=== PATIENT | male | born 1960 | race Two or more races ===

== ENCOUNTER 2016-09-13 18:53 | Emergency (ER) | payer BC ==
[~2016-09-13] VITALS: Ht 182.9 cm; Wt 117.9 kg
[2016-09-13 19:51] LABS: Basophils # (auto) 0 uL; Basophils % (auto) 0.4 % (0.0-2.0); Eosinophils # (auto) 0.1 uL; Eosinophils % (auto) 0.6 % (0.0-7.0); Hematocrit 47.3 % (41.0-53.0); Hemoglobin 16.1 g/dL (13.5-17.5); Lymphocytes # (auto) 2.2 uL; Lymphocytes % (auto) 23.7 % (10.0-50.0); Mean Corpuscular Hemoglobin 29.7 pg (28.0-32.0); Mean Corpuscular Hgb Conc. 33.9 g/dL (32.0-36.0); Mean Corpuscular Volume 87.5 fL (80.0-100.0); Monocytes # (auto) 0.7 uL; Monocytes % (auto) 7.1 % (0.0-12.0); Neutrophils # (auto) 6.4 uL; Neutrophils % (auto) 68.2 % (37.0-80.0); Platelet Count (auto) 348 10^3/uL (140-450); White Blood Cell 9.4 10^3/uL (4.4-10.8)
[2016-09-13 20:12] LABS: Albumin 3.9 g/dL (3.4-5.0); Anion Gap 7 (5-15); Blood Urea Nitrogen 14 mg/dL (7-18); Calcium 9.1 mg/dL (8.5-10.1); Carbon Dioxide 30 mmol/L (21-32); Chloride 104 mmol/L (98-107); Glucose 366 mg/dL (74-106); Magnesium 2.1 mg/dL (1.6-2.6); Potassium 4.2 mmol/L (3.5-5.1); Sodium 141 mmol/L (136-145)
[2016-09-13 20:13] LABS: INR 0.94 (0.9-1.15); Prothrombin Time 10.2 sec (9.37-12.3)
[2016-09-13 20:14] LABS: Aspartate Aminotransferase 17 U/L (15-37); BUN/Creatinine Ratio 15.2; GFR African American 110 mL/min; GFR Non-African American 91 mL/min
[2016-09-13 20:19] LABS: Alkaline Phosphatase 144 U/L (45-117); Bilirubin, Total 0.3 mg/dL (0.2-1.0); Total Protein 7.2 g/dL (6.4-8.2)
[2016-09-13] MEDS ORDERED: ACETAMINOPHEN 325 MG TAB PO ONE (22:00)
[2016-09-13 23:03] LABS: B-Type Natriuretic Peptide 4.56 pg/mL (0-100)
[2016-09-13 23:11] LABS: Base Excess -2.3 mmol/L (-2.0-2.0); Blood 02Sat 94.3 % (96-100); Blood COHb 0.2 % (0.5-1.5); Blood MetHb 0.3 % (0.0-1.5); HCO3 21.8 mmol/L (22-26.0); HHb 5.7 % (0.0-5.0); MODE ROOM AIR; O2Hb 93.8 % (94.0-97.0); PCO2(T) 35.7 mmHg (35.0-45.0); PO2(T) 77.5 mmHg (80.0-100.0); Sample Type Arterial
[2016-09-13 23:14] LABS: Temperature: 22.4 C (20.0-25.0)
[2016-09-14 02:01] VITALS: BP 138/87
[2016-09-14] MEDS ORDERED: SODIUM CHLORIDE 0.9% 2,000 ML IV ONE (02:30)
== END 2016-09-14 02:30 | disposition home or self-care (01) ==
LOC: ER 18:59
DX: E86.9 Volume depletion, unspecified (principal); I10 Essential (primary) hypertension; R42 Dizziness and giddiness; Z88.0 Allergy status to penicillin
CPT/HCPCS: 36415; 36600; 70450; 71010; 80053; 82010; 82805; 82962; 83036; 83735; 83880; 84443; 84484; 85025; 85610; 85730; 93005

== ENCOUNTER 2017-05-27 15:12 | Emergency (ER) | payer BC ==
[~2017-05-27] VITALS: Ht 185.4 cm; Wt 120.2 kg
[2017-05-27 16:15] LABS: Albumin 3.9 g/dL (3.4-5.0); BUN/Creatinine Ratio 15.8; Potassium 3.8 mmol/L (3.5-5.1)
[2017-05-27 16:16] LABS: Basophils # (auto) 0.1 uL; Basophils % (auto) 0.7 % (0.0-2.0); Eosinophils # (auto) 0.1 uL; Eosinophils % (auto) 1.4 % (0.0-7.0); Hematocrit 46.2 % (41.0-53.0); Hemoglobin 15.6 g/dL (13.5-17.5); Lymphocytes # (auto) 1.6 uL; Lymphocytes % (auto) 19.8 % (10.0-50.0); Mean Corpuscular Hemoglobin 29.3 pg (28.0-32.0); Mean Corpuscular Hgb Conc. 33.9 g/dL (32.0-36.0); Mean Corpuscular Volume 86.4 fL (80.0-100.0); Monocytes # (auto) 0.7 uL; Monocytes % (auto) 7.9 % (0.0-12.0); Neutrophils # (auto) 5.8 uL; Neutrophils % (auto) 70.2 % (37.0-80.0); Platelet Count (auto) 299 10^3/uL (140-450); Red Blood Cells 5.34 10^6/uL (4.5-5.90); Red Cell Distribution Width 12.8 % (11.8-14.3); White Blood Cell 8.3 10^3/uL (4.4-10.8)
[2017-05-27 16:18] LABS: Bilirubin, Total 0.4 mg/dL (0.2-1.0); Total Protein 7.2 g/dL (6.4-8.2)
[2017-05-27 19:10] VITALS: BP 135/80
== END 2017-05-27 19:15 | disposition home or self-care (01) ==
LOC: ER 15:19
DX: R07.89 Other chest pain (principal); E11.9 Type 2 diabetes mellitus without complications; I10 Essential (primary) hypertension; Z95.1 Presence of aortocoronary bypass graft; Z88.0 Allergy status to penicillin
CPT/HCPCS: 36415; 71046; 80053; 82962; 83880; 84484; 85025; 93005

== ENCOUNTER 2020-07-12 08:23 | Inpatient (IN) | payer BC, OTHER ==
[~2020-07-12] VITALS: Ht 182.9 cm; Wt 115.0 kg
[2020-07-12 09:24] LABS: Basophils # (auto) 0.1 10 ^3/uL (0-0.2); Basophils % (auto) 0.7 % (0.0-2.0); Eosinophils # (auto) 0.2 10 ^3/uL (0-0.8); Eosinophils % (auto) 3.1 % (0.0-7.0); Hematocrit 43.2 % (41.0-53.0); Hemoglobin 14.8 g/dL (13.5-17.5); Lymphocytes # (auto) 1.2 10 ^3/uL (0.4-5.4); Lymphocytes % (auto) 15.8 % (10.0-50.0); Mean Corpuscular Hgb Conc. 34.2 g/dL (32.0-36.0); Mean Corpuscular Volume 87.7 fL (80.0-100.0); Monocytes # (auto) 0.6 10 ^3/uL (0-1.3); Monocytes % (auto) 7.5 % (0.0-12.0); Neutrophils # (auto) 5.4 10 ^3/uL (1.6-8.6); Neutrophils % (auto) 72.9 % (37.0-80.0); Platelet Count (auto) 246 10^3/uL (140-450); Red Blood Cells 4.92 10^6/uL (4.5-5.90); Red Cell Distribution Width 13.1 % (11.8-14.3); White Blood Cell 7.5 10^3/uL (4.4-10.8)
[2020-07-12 10:03] LABS: Albumin 3.3 g/dL (3.4-5.0); Magnesium 2.2 mg/dL (1.6-2.6); Potassium 4.1 mmol/L (3.5-5.1)
[2020-07-12 10:09] LABS: BUN/Creatinine Ratio 20.8; Bilirubin, Total 0.3 mg/dL (0.2-1.0); Total Protein 6.4 g/dL (6.4-8.2)
[2020-07-12 10:36] LABS: INR 0.99 (0.9-1.15); Partial Thromboplastin Time 25.9 sec (23.0-31.2)
[2020-07-12] MEDS ORDERED: NITROGLYCERIN 0.4 MG SL TAB SL PRN (11:30)
[2020-07-12] MEDS ORDERED: DEXTROSE (50%) 50ML SYRG IV PRN (11:30)
[2020-07-12] MEDS ORDERED: TEMAZEPAM 15 MG CAP PO PRN (11:30)
[2020-07-12] MEDS ORDERED: LABETALOL HCL 5 MG/ML ML 20ML VIAL IV PRN (11:30)
[2020-07-12] MEDS ORDERED: MORPHINE SULF INJ 2 MG/ML SYRINGE 1ML IV PRN ×2 (11:30)
[2020-07-12] MEDS ORDERED: traMADol HCL 50 MG TAB PO PRN (11:30)
[2020-07-12] MEDS ORDERED: LACTULOSE 20Gm/30ML SOLN PO PRN ×2 (11:30)
[2020-07-12] MEDS ORDERED: PROMETHAZINE HCL 25 MG/ML 1ML IV PRN (11:30)
[2020-07-12] MEDS ORDERED: ACETAMINOPHEN 500 MG TAB PO PRN (11:30)
[2020-07-12] MEDS: InsuLIN REG 1unit/0.01ml Soln (100units/ml) SC SCH ×3 (12:09→22:00)
[2020-07-12] MEDS: ACCU-CHEK COMFORT CURVE STRIP VI SCH ×3 (12:09→21:56)
[2020-07-12 13:00] LABS: CRP High Sensitivity 0.17 mg/dL (< 0.3)
[2020-07-12] MEDS: SODIUM CHLORIDE 0.9% 1,000 ML IV SCH (14:00)
[2020-07-12] MEDS ORDERED: ENOXAPARIN SOD 100 MG/1 ML SYRINGE SC ONE (16:45)
[2020-07-12 16:58] VITALS: BP 143/82
[2020-07-12] MEDS: FAMOTIDINE 20 MG TAB PO SCH (21:55)
[2020-07-12] MEDS: METOPROLOL TARTRATE 25 MG TAB PO SCH (21:55)
[2020-07-12] MEDS: ATORVASTATIN 20 MG TAB PO SCH (21:56)
[2020-07-12] MEDS: ENOXAPARIN SOD 100 MG/1 ML SYRINGE SC SCH (21:56)
[2020-07-12 22:00] VITALS: BP 133/79
[2020-07-13] MEDS: SODIUM CHLORIDE 0.9% 1,000 ML IV SCH ×2 (01:54→16:59)
[2020-07-13 05:00] VITALS: BP 133/81
[2020-07-13] MEDS: InsuLIN REG 1unit/0.01ml Soln (100units/ml) SC SCH ×4 (06:48→22:00)
[2020-07-13] MEDS: ACCU-CHEK COMFORT CURVE STRIP VI SCH ×3 (06:48→16:59)
[2020-07-13 06:55] LABS: Cholesterol 113 mg/dL (< 200); HDL Cholesterol 26 mg/dL (40-59); Triglycerides 405 mg/dL (< 150)
[2020-07-13 08:00] VITALS: BP 125/69
[2020-07-13 09:00] VITALS: BP 139/87
[2020-07-13] MEDS: ASPirin 81 mg TAB PO SCH (09:29)
[2020-07-13] MEDS: METOPROLOL TARTRATE 25 MG TAB PO SCH ×2 (09:32→22:00)
[2020-07-13] MEDS: ENOXAPARIN SOD 100 MG/1 ML SYRINGE SC SCH ×3 (09:32→22:00)
[2020-07-13] MEDS: FAMOTIDINE 20 MG TAB PO SCH (09:32)
[2020-07-13] MEDS: NITROGLYCERIN 0.2MG/HR TOPICAL PATCH TD SCH (09:33)
[2020-07-13] MEDS ORDERED: CLOPIDOGREL 300 MG TAB PO ONE (12:15)
[2020-07-13 16:48] VITALS: BP 124/71
[2020-07-13 20:00] VITALS: BP 129/74
[2020-07-13 22:00] VITALS: BP 129/74
[2020-07-14] MEDS: ACCU-CHEK COMFORT CURVE STRIP VI SCH ×5 (03:11→21:34)
[2020-07-14] MEDS: FAMOTIDINE 20 MG TAB PO SCH ×3 (03:11→21:34)
[2020-07-14] MEDS: METOPROLOL TARTRATE 25 MG TAB PO SCH ×4 (03:11→21:33)
[2020-07-14] MEDS: ATORVASTATIN 20 MG TAB PO SCH ×2 (03:13→21:33)
[2020-07-14] MEDS: SODIUM CHLORIDE 0.9% 1,000 ML IV SCH ×2 (03:15→11:15)
[2020-07-14 05:00] VITALS: BP 146/81
[2020-07-14] MEDS: InsuLIN REG 1unit/0.01ml Soln (100units/ml) SC SCH ×4 (06:55→21:34)
[2020-07-14 08:00] VITALS: BP 122/76
[2020-07-14 08:46] LABS: Urine Bacteria NONE SEEN /hpf (None Seen); Urine Blood Negative /uL (Negative); Urine WBC 1 /hpf (0 - 3)
[2020-07-14 09:00] VITALS: BP 140/60
[2020-07-14] MEDS ORDERED: LABETALOL HCL 5 MG/ML ML 20ML VIAL IV PRN (11:15)
[2020-07-14] MEDS ORDERED: ANGIOMAX 250 MG VIAL IV ONE (13:08)
[2020-07-14] MEDS ORDERED: fentaNYL CITRATE 100 MCG/2 ML VL ONE (13:08)
[2020-07-14] MEDS ORDERED: SODIUM CHL 0.9% 0 ML ONE (13:09)
[2020-07-14] MEDS ORDERED: MIDAZOLAM HCL 1MG/1ML-2 ML VIAL ONE ×2 (13:09→13:11)
[2020-07-14] MEDS ORDERED: LIDOCAINE 2%HCL (LOCAL ANESTH.) INJ 20ML MDV ONE (13:10)
[2020-07-14] MEDS ORDERED: IOHEXOL 350 MG/ML 100ML IJ ONE (13:10)
[2020-07-14 16:37] VITALS: BP 129/95
[2020-07-14] MEDS: ASPirin 81 mg TAB PO SCH (16:39)
[2020-07-14] MEDS: NITROGLYCERIN 0.2MG/HR TOPICAL PATCH TD SCH (16:41)
[2020-07-14] MEDS ORDERED: ATOR20TA PO (18:40)
[2020-07-14] MEDS ORDERED: METF-370 PO (18:40)
[2020-07-14] MEDS ORDERED: APIX5TAB PO (18:40)
[2020-07-14] MEDS ORDERED: NEBI5TAB2 PO (18:40)
[2020-07-14] MEDS ORDERED: DAPA1TAB4 PO (18:40)
[2020-07-14 22:00] VITALS: BP 115/64
[2020-07-15] MEDS ORDERED: diphenhdrAMINE HCL 25 MG CAP PO ONE (02:30)
[2020-07-15 05:00] VITALS: BP 121/73
[2020-07-15] MEDS: InsuLIN REG 1unit/0.01ml Soln (100units/ml) SC SCH ×2 (05:25→11:30)
[2020-07-15] MEDS: ACCU-CHEK COMFORT CURVE STRIP VI SCH ×2 (05:25→11:39)
[2020-07-15 06:16] LABS: Basophils # (auto) 0 10 ^3/uL (0-0.2); Basophils % (auto) 0.4 % (0.0-2.0); Eosinophils # (auto) 0.1 10 ^3/uL (0-0.8); Eosinophils % (auto) 1.6 % (0.0-7.0); Hematocrit 43.2 % (41.0-53.0); Hemoglobin 14.9 g/dL (13.5-17.5); Lymphocytes # (auto) 1.1 10 ^3/uL (0.4-5.4); Lymphocytes % (auto) 12.3 % (10.0-50.0); Mean Corpuscular Hemoglobin 30.2 pg (28.0-32.0); Mean Corpuscular Hgb Conc. 34.5 g/dL (32.0-36.0); Mean Corpuscular Volume 87.6 fL (80.0-100.0); Monocytes # (auto) 0.6 10 ^3/uL (0-1.3); Monocytes % (auto) 7.1 % (0.0-12.0); Neutrophils % (auto) 78.6 % (37.0-80.0); Nucleated Red Blood Cells % 0.1 %; Platelet Count (auto) 241 10^3/uL (140-450); Red Blood Cells 4.94 10^6/uL (4.5-5.90); White Blood Cell 8.9 10^3/uL (4.4-10.8)
[2020-07-15 06:41] LABS: BUN/Creatinine Ratio 32.1; Calcium 8.6 mg/dL (8.5-10.1); Potassium 4.1 mmol/L (3.5-5.1)
[2020-07-15] MEDS: SODIUM CHLORIDE 0.9% 1,000 ML IV SCH (07:15)
[2020-07-15 08:22] VITALS: BP 122/82
[2020-07-15] MEDS ORDERED: CLOPIDOGREL BISULFATE 75 MG TAB PO SCH (10:00)
[2020-07-15] MEDS: NITROGLYCERIN 0.2MG/HR TOPICAL PATCH TD SCH (10:00)
[2020-07-15] MEDS: METOPROLOL TARTRATE 25 MG TAB PO SCH (10:00)
[2020-07-15] MEDS: ASPirin 81 mg TAB PO SCH (10:06)
[2020-07-15] MEDS: FAMOTIDINE 20 MG TAB PO SCH (10:08)
[2020-07-15 11:07] VITALS: BP 112/64
== END 2020-07-15 11:44 | disposition home or self-care (01) | DRG 281 ==
LOC: ER 08:23 → TELE 11:29 → TELE-EAST 12:26 → TELE-CENTR 07-13 12:25
PROVIDERS: ADMIT Internal Medicine; ATTEND Internal Medicine
PROC: 4A023N7 Measurement of Cardiac Sampling and Pressure, Left Heart, Percutaneous Approach (ICD-10-PCS; principal; 2020-07-14)
PROC: B2111ZZ Fluoroscopy of Multiple Coronary Arteries using Low Osmolar Contrast (ICD-10-PCS; 2020-07-14)
PROC: B2151ZZ Fluoroscopy of Left Heart using Low Osmolar Contrast (ICD-10-PCS; 2020-07-14)
DX: I21.4 Non-ST elevation (NSTEMI) myocardial infarction (principal); D68.59 Other primary thrombophilia; E44.1 Mild protein-calorie malnutrition; I25.10 Atherosclerotic heart disease of native coronary artery without angina pectoris; E11.51 Type 2 diabetes mellitus with diabetic peripheral angiopathy without gangrene; E66.9 Obesity, unspecified; E78.5 Hyperlipidemia, unspecified; I07.1 Rheumatic tricuspid insufficiency; I10 Essential (primary) hypertension; I48.91 Unspecified atrial fibrillation; Z20.822 Contact with and (suspected) exposure to COVID-19; Z79.02 Long term (current) use of antithrombotics/antiplatelets; Z83.3 Family history of diabetes mellitus; Z95.1 Presence of aortocoronary bypass graft; Z95.2 Presence of prosthetic heart valve; Z68.34 Body mass index [BMI] 34.0-34.9, adult
CPT/HCPCS: 36415; 71046; 80048; 80053; 80061; 81001; 82550; 82962; 83036; 83735; 83880; 84484; 85025; 85379; 85610; 85652; 85730; 86141; 86850; 86900; 86901; 87426; 93005; 93306; 99152; G0378; J1815; J2250